=== PATIENT | male | born 1995 | race Caucasian/White ===

== ENCOUNTER 2018-07-11 10:53 | Outpatient (CLI) | payer BC ==
--- NOTE | 2018-07-11 13:38 | MRI ---
MRI OF THE RIGHT KNEE: Date: 07/11/18 PROVIDED CLINICAL HISTORY: Knee pain. FINDINGS: The anterior cruciate ligament, medial collateral ligament, and lateral collateral ligamentous comple x demonstrate an intact MR appearance. There is thickening and indistinct signal present in the media l aspect of the proximal PCL suggesting sequelae of prior tear. The extensor mechanism appears intact . There is parameniscal cyst formation emanating from the posterior horn of the medial meniscus as it a pproaches the meniscal root. Parameniscal cyst is also seen posterior to the posterior horn of the me dial meniscus more medially. There is signal alteration within the meniscus itself though it is diffi cult to delineate a focal area of Grade III signal alteration. The lateral meniscus demonstrates no e vidence for tear. No focal articular cartilage defect is apparent. The amount of fluid within the knee joint appears physiologic. No focal concerning regional marrow or muscular signal abnormality apparent. IMPRESSION: 1. Parameniscal cyst formation involving the posterior horn of the medial meniscus implying a menisc al tear. Focal Grade III signal is not apparent. 2. Evidence for prior partial PCL tear. POS: NOLAN
== END 2018-07-11 10:54 | disposition home or self-care (01) ==
LOC: TBSIIMAG 10:53
PROVIDERS: ATTEND Orthopaedic Surgery Sports Medicine
DX: S83.231A Complex tear of medial meniscus, current injury, right knee, initial encounter (principal); M23.021 Cystic meniscus, posterior horn of medial meniscus, right knee